=== PATIENT | male | born 1995 | race Caucasian/White ===

== ENCOUNTER 2019-12-22 05:18 | Emergency (ER) | payer OTHER, MEDICAID ==
[~2019-12-22] VITALS: Ht 188 cm; Wt 81.6 kg
[~2019-12-22 05:18] MED LIST: ALBUTEROL INHALER
[2019-12-22 05:45] VITALS: BP_SYST 138
[2019-12-22] MEDS ORDERED: IPRATROPIUM/ALBUTEROL SULFATE 3 ML AMPUL.NEB (DUONEB) INH ONE (06:15)
[2019-12-22] MEDS ORDERED: methylPREDNISolone SOD SUCC/PF 62.5 MG/ML VIAL IM ONE (06:15)
[2019-12-22 06:44] LABS: BASOPHILS % (AUTO) 0.4 % (0.0-2.0); EOSINOPHILS # (AUTO) 0.1 K/uL (0.0-0.4); EOSINOPHILS % (AUTO) 0.7 % (0.0-4.0); HEMATOCRIT 46.8 % (36-54); HEMOGLOBIN 16.1 g/dL (14.0-18.0); LYMPHOCYTES # (AUTO) 1.6 K/uL (1.0-5.5); MEAN CORPUSCULAR HEMOGLOBIN 30 pg (27-31); MEAN CORPUSCULAR HGB CONC 34 % (32-36); MEAN CORPUSCULAR VOLUME 88 fL (79.0-98.0); MONOCYTES # (AUTO) 0.4 K/uL (0.0-1.0); MONOCYTES % (AUTO) 4.1 % (1.7-9.3); NEUTROPHILS # (AUTO) 8.1 K/uL (1.8-7.7); NEUTROPHILS % (AUTO) 78.8 % (40.0-70.0); PLATELET COUNT (AUTO) 314 K/uL (130-430); RED BLOOD CELL COUNT(AUTO) 5.35 MIL/uL (4.2-6.2); RED CELL DISTRIBUTION WIDTH 12.9 % (9.0-15.0); WHITE BLOOD COUNT (AUTO) 10.3 K/uL (4.8-10.8)
[2019-12-22 07:44] VITALS: BP_SYST 138
== END 2019-12-22 07:45 | disposition home or self-care (01) ==
LOC: SED 05:18
DX: J45.901 Unspecified asthma with (acute) exacerbation (principal)
CPT/HCPCS: 36415; 71045; 84484; 85025; 93005; 94640; 96372; 99285; J2930

== ENCOUNTER 2021-08-29 19:43 | Emergency (ER) | payer MEDICAID, OTHER ==
[~2021-08-29] VITALS: Ht 188 cm; Wt 86.2 kg
--- NOTE | 2021-08-29 20:31 | NUR ---
Pt to ER w/ c/o right eye pain 8/10 burning in nature, redness, swelling, and blurred vision greater than patient's baseline, pt denies body aches, fevers, or chills. Pt states was recently treated for stye of right eye x 2 weeks ago... completed PO Abx treatment x 4-5 days ago
[2021-08-29 20:33] VITALS: BP_SYST 128
--- NOTE | 2021-08-29 21:52 | NUR ---
Note yvette in ED - 08/29/21 at 2154 by [email or web address] Patient to ER bed to [email or web address] for evaluation. Side rails up. Report given to MATTHIAS RODRIGUEZ
--- NOTE | 2021-08-29 21:54 | NUR ---
CALLED FOR BED PLACEMENT. PATIENT NOT IN WAITING ROOM
--- NOTE | 2021-08-29 22:10 | NUR ---
PATIENT NOT IN WAITING ROOM
[2021-08-29 22:25] VITALS: BP_SYST 128
--- NOTE | 2021-08-29 22:25 | NUR ---
PATIENT NOT IN WAITING ROOM
--- NOTE | 2021-08-29 23:32 | NUR ---
unable to locate patient at this time. Pt name called both in lobby and outside, yet no answer.
== END 2021-08-29 22:25 | disposition left against medical advice (07) ==
LOC: SED 19:43
DX: H57.11 Ocular pain, right eye (principal); Z53.21 Procedure and treatment not carried out due to patient leaving prior to being seen by health care provider